=== PATIENT | female | born 1940 | race Caucasian/White ===

== ENCOUNTER 2017-08-13 15:50 | Emergency (ER) | payer OTHER, BC ==
[~2017-08-13] VITALS: Ht 170.2 cm; Wt 67.6 kg
[2017-08-13 18:43] VITALS: BP 149/82
== END 2017-08-13 18:50 | disposition home or self-care (01) ==
LOC: EME 15:50
DX: S01.81XA Laceration without foreign body of other part of head, initial encounter (principal); Z23 Encounter for immunization; E78.5 Hyperlipidemia, unspecified; I10 Essential (primary) hypertension; Z88.2 Allergy status to sulfonamides; H40.9 Unspecified glaucoma
CPT/HCPCS: 70450; 72125; 99281; 99284